=== PATIENT | male | born 1980 | race Caucasian/White ===

== ENCOUNTER 2016-12-13 14:55 | Observation (INO) | payer OTHER ==
[2016-12-13] MEDS ORDERED: NS 0.9% 1000 ML* 1,000 ML IV ONE (15:38)
[2016-12-13 16:23] LABS: Hematocrit 47 % (42-52); Hemoglobin 15.8 g/dl (14.0-18.0); Mean Corpuscular HGB Conc 34 g/dl (31-36); Mean Corpuscular Hemoglobin 30 pg (27-31); Mean Corpuscular Volume 88 fL (80-94); Mean Platelet Volume 9 um3 (7.4-10.4); Red Blood Count 5.31 10^6/ul (4.0-5.4); Red Cell Distribution Width 13 % (10.5-15); White Blood Count 11.2 10^3/ul (3.5-10.8)
[2016-12-13 16:38] LABS: ALT 15 U/L (7-52); Albumin 4.6 g/dL (3.2-5.2); Alkaline Phosphatase 72 U/L (34-104); BUN/Creatinine Ratio 14.7 (8-20); Blood Urea Nitrogen 14 mg/dL (6-24); CO2 Carbon Dioxide 27 mmol/L (22-32); Calcium 9.5 mg/dL (8.6-10.3); Chloride 104 mmol/L (101-111); EGFR Non-African American 90.2 (>60); Glucose 86 mg/dL (70-100); Sodium 136 mmol/L (133-145); Total Protein 7.6 g/dL (6.4-8.9)
[2016-12-13 16:48] LABS: TSH (Thyroid Stimulating Horm) 1.24 mcIU/mL (0.34-5.60)
[2016-12-13 17:38] LABS: Anion Gap 5 mmol/L (2-11)
[2016-12-13] MEDS ORDERED: Aspirin TAB* 325 MG PO ONE (18:30)
[2016-12-13] MEDS ORDERED: Nitroglycerin TAB 0.4 MG* 0.4 MG TAB SL ONE (18:30)
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
[2016-12-14 08:04] VITALS: BP 142/74
[2016-12-14] MEDS ORDERED: Nicotine Inhaler* 10 MG AMP INH PRN (08:24)
[2016-12-14] MEDS ORDERED: Mouth Piece, Nicotine* 1 EACH CARTRIDGE INH ONE (09:00)
[2016-12-14] MEDS ORDERED: Nicotine PATCH 14 MG/24 HR* PATCH TRANSDERM SCH (09:00)
--- NOTE | 2016-12-14 11:15 | ECHO ---
Patient: INDRA VILLARREAL [facility] Rec#: [id number] : 1980 Date: 12/14/2016 Age: 36y Height: 180.34 cm / 71.0 in Weight: 111.13 kg / 244.9 lbs Sex: M BSA: 2.3 Room#: 451 Admit Date#: 12/13/2016 Type: Inpatient Referring: Rao Presley MD Reading: Tio Rojas MD Director Web: Vida Mello RD,RDMS Transthoracic Echocardiogram Indication: Syncope BP: 128/84 HR: 60 Rhythm: NSR Findings History: GERD, smoker, congenital heart defect Technical Comments: The study quality is good. Completed 1115 Left Ventricle: The left ventricular chamber size is normal. There is no left ventricular hypertrophy. The estimated ejection fraction is 55-60%. Normal left ventricular diastolic filling is observed. Left Atrium: The left atrial chamber size is normal. Right Ventricle: The right ventricular chamber size and systolic function are within normal limits. Right Atrium: The right atrial cavity size is normal. Aortic Valve: The aortic valve is trileaflet. There is no evidence of aortic valve thickening. Systolic excursion of the aortic valve is normal. There is no evidence of aortic regurgitation. There is no evidence of aortic stenosis. Mitral Valve: The mitral valve leaflets appear normal. There is a trace of mitral regurgitation. There is no evidence of mitral stenosis. Tricuspid Valve: The tricuspid valve leaflets are normal. There is trace tricuspid regurgitation. Pulmonic Valve: There is no evidence of pulmonic valve thickening. There is a trace pulmonic regurgitation. Pericardium: There is no significant pericardial effusion. Aorta: The aortic root appears normal. There is no dilatation of the aortic arch. Pulmonary Artery: The main pulmonary artery appears normal. Venous: The inferior vena cava is dilated. There is less than 50% respiratory change in the inferior vena cava dimension. Summary: There was not any prior study for comparison. Echocardiogram is within normal limits. Conclusions The study quality is good. Completed 1115 The estimated ejection fraction is 55-60%. There is a trace of mitral regurgitation. There is trace tricuspid regurgitation. There is a trace pulmonic regurgitation. Measurements Name Value Normal Range RVIDd (AP) 2D 2.9 cm (0.9 - 2.6) RVDdMajor (2D) 3.3 cm (2.2 - 4.4) RAd ISD 4CH 4.4 cm (3.4 - 4.9) RA (A4C)W 4.4 cm (2.9 - 4.6) IVSd (2D) 1 cm (0.6 - 1) LVPWd (2D) 1 cm (0.6 - 1) LVIDd (2D) 5.5 cm (3.6 - 5.4) LVIDs (2D) 3.8 cm - LV FS (2D) 32 % (25 - 45) Aortic Annulus 2.3 cm (1.4 - 2.6) Ao root diameter (2D) 3 cm (2.1 - 3.5) Ascending Ao 2.6 cm (2.1 - 3.4) Aortic arch 2.5 cm (1.8 - 3.4) LA dimension (AP) 2D 4 cm (2.3 - 3.8) LAd ISD 4CH 4.7 cm (2.9 - 5.3) LA ISD 4CH W 4.2 cm (2.5 - 4.5) Name Value Normal Range LA ESV SP 4CH (A/L) 42.88 ml - LA ESV SP 2CH (A/L) 81.47 ml - LA ESV BP (A/L) 62.59 ml - LA ESV BP (A/L) index 27 ml/m2 - LA ESV SP 4CH (MOD) 38.65 ml - LA ESV SP 2CH (MOD) 78.27 ml - Name Value Normal Range MV E-wave Vmax 0.7 m/sec - MV deceleration time 246 msec - MV A-wave Vmax 0.5 m/sec - MV E:A ratio 1.2 ratio - LV septal e' Vmax 0.09 m/sec - LV lateral e' Vmax 0.11 m/sec - LV E:e' septal ratio 8 ratio - LV E:e' lateral ratio 6.4 ratio - Name Value Normal Range AV Vmax 1.3 m/sec - AV VTI 27.4 cm - AV peak gradient 7 mmHg - AV mean gradient 3.6 mmHg - LVOT Vmax 1.1 m/sec - LVOT VTI 23.5 cm - LVOT peak gradient 5 mmHg - LVOT mean gradient 2.6 mmHg - JULISSA Vmax 1.6 m/sec - Name Value Normal Range RAP 8 mmHg - IVC diameter 2.5 cm - Name Value Normal Range PV Vmax 0.8 m/sec - PV peak gradient 2.4 mmHg -
[2016-12-15] MEDS ORDERED: Nicotine Patch Removal NOTE FOLLOW UP SCH (06:00)
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
== END 2016-12-14 11:50 | disposition home or self-care (01) ==
LOC: ED 14:55 → MEDTELE 18:42
PROVIDERS: ADMIT Internal Medicine; ATTEND Internal Medicine
DX: R41.82 Altered mental status, unspecified (principal); R51 Headache; F17.200 Nicotine dependence, unspecified, uncomplicated; Q24.9 Congenital malformation of heart, unspecified; I34.0 Nonrheumatic mitral (valve) insufficiency; I36.1 Nonrheumatic tricuspid (valve) insufficiency; I37.1 Nonrheumatic pulmonary valve insufficiency; K21.9 Gastro-esophageal reflux disease without esophagitis; Z87.820 Personal history of traumatic brain injury
CPT/HCPCS: 36415; 80053; 83605; 84443; 84484; 85025; 93005; 93306; 99284; A9270-GY; G0378

== ENCOUNTER 2017-09-15 11:32 | Emergency (ER) | payer MEDICAID, OTHER ==
[2017-09-15] MEDS ORDERED: Ketorolac INJ* 60 MG/2 ML VIAL IM ONE (14:15)
--- NOTE | 2017-09-15 14:47 | RAD ---
Indication: Left hip pain with paresthesias. 2 views of left hip and an AP view the pelvis demonstrates no fracture. Joint spaces well-preserved. Pelvic ring is intact. IMPRESSION: No fracture of the pelvis or left hip is noted.
--- NOTE | 2017-09-15 14:52 | RAD ---
INDICATION: Left hip pain radiating into thigh, paresthesia. COMPARISON: There are no prior studies available for comparison. TECHNIQUE: AP neutral, flexion and extension lateral films of the lumbar spine were obtained. FINDINGS: The vertebra are in normal alignment. No fracture is seen. There is no evidence for instability with flexion and extension. There is mild disc space narrowing at the L2-L3, L4-L5 and L5-S1 levels. IMPRESSION: MILD DISC SPACE NARROWING AT THE L2-L3, L4-L5 AND L5-S1 LEVELS.
[2017-09-15 15:51] VITALS: BP 123/76
--- NOTE | 2017-09-15 15:51 | ED ---
Lower Extremity - HPI Summary HPI Summary: Pt here Lt hip pain x 10 months -radiates into thigh w/ bending at the hip. If he sits for too long/hip flexe, he develops paresthesia sensation into entire LE - no weakness or numbness, - History of Current Complaint Chief Complaint: EDBackInjuryPain Stated Complaint: LT LEG/FLANK PAIN Time Seen by Provider: 09/15/17 13:05 Hx Obtained From: Patient Pain Intensity: 10 - Allergies/Home Medications Allergies/Adverse Reactions: Allergies Allergy/AdvReac Type Severity Reaction Status Date / Time bee venom protein (honey bee) Allergy Anaphylatic Verified 09/15/17 11:42 Shock Tricyclic Compounds Allergy See Comment Verified 09/15/17 11:42 PMH/Surg Hx/FS Hx/Imm Hx Endocrine/Hematology History: Denies: Hx Diabetes Cardiovascular History: Reports: Hx Congenital Heart Disease - "aortic valve hole" Denies: Hx Congestive Heart Failure, Hx Hypertension, Hx Pacemaker/ICD, Other Cardiovascular Problems/Disorders Respiratory History: Reports: Hx Chronic Bronchitis - Twice Denies: Hx Asthma, Hx Chronic Obstructive Pulmonary Disease (COPD), Other Respiratory Problems/Disorders GI History: Reports: Hx Gastroesophageal Reflux Disease History: Denies: Hx Renal Disease Musculoskeletal History: Reports: Hx Back Problems - lower back pain Sensory History: Reports: Hx Contacts or Glasses - pt states he does not have current pair Denies: Hx Hearing Aid Opthamlomology History: Reports: Hx Contacts or Glasses - pt states he does not have current pair Psychiatric History: Reports: Hx Depression, Hx Bipolar Disorder, Hx Substance Abuse Denies: Hx Eating Disorder, Hx of Violent Episodes Against Others - Surgical History Surgery Procedure, Year, and Place: APPENDIX, 2009 ; RIGHT HAND REPAIR , AGE 14 ; Thumb surgery 04/24 Hx Anesthesia Reactions: No Infectious Disease History: No Infectious Disease History: Denies: Traveled Outside the [place] in Last 30 Days - Family History Known Family History: Positive: Unknown Family History: adopted. - Social History Alcohol Use: Occasionally Alcohol Amount: 2-3 PER month Hx Substance Use: No Substance Use Type: Reports: None Hx Tobacco Use: Yes Smoking Status (MU): Heavy Every Day Tobacco Smoker Type: Cigarettes Amount Used/How Often: 1/2 PACK A DAY Have You Smoked in the Last Year: Yes Physical Exam Vital Signs On Initial Exam: Initial Vitals Temp Pulse Resp BP Pulse Ox 98.4 F 74 14 128/69 98 09/15/17 11:43 09/15/17 11:43 09/15/17 11:43 09/15/17 11:43 09/15/17 11:43 Diagnostics - Vital Signs Vital Signs Temp Pulse Resp BP Pulse Ox 09/15/17 11:43 98.4 F 74 14 128/69 98 - Laboratory Lab Statement: Any lab studies that have been ordered have been reviewed, and results considered in the medical decision making process. Discharge - Discharge Plan Referrals: Stan Mancilla MD [Primary Care Provider] -
== END 2017-09-15 15:50 | disposition home or self-care (01) ==
LOC: ED 11:32
DX: R10.84 Generalized abdominal pain (principal); F17.210 Nicotine dependence, cigarettes, uncomplicated
CPT/HCPCS: 72114; 96372; 99282; J1885

== ENCOUNTER 2019-02-28 10:57 | Emergency (ER) | payer SELFPAY ==
--- NOTE | 2019-02-28 11:50 | UC ---
Dental HPI - HPI Summary HPI Summary: 38 yo male presents with tooth pain. He tells me that he knows he has several bad teeth. Since yesterday has noticed right lower tooth pain - has had several abscesses in this area. He has been taking ibuprofen for discomfort with little relief. He is eating and drinking well. Denies fever or chills - History of Current Complaint Stated Complaint: TOOTH ACHE Time Seen by Provider: 02/28/19 11:50 Hx Obtained From: Patient Severity: Moderate Pain Intensity: 5 Pain Scale Used: 0-10 Numeric - Allergies/Home Medications Allergies/Adverse Reactions: Allergies Allergy/AdvReac Type Severity Reaction Status Date / Time bee venom protein (honey bee) Allergy Anaphylatic Verified 02/28/19 11:53 Shock Tricyclic Compounds Allergy See Comment Verified 02/28/19 11:53 PMH/Surg Hx/FS Hx/Imm Hx - Additional Past Medical History Additional PMH: None Other History Of: Negative For: Anticoagulant Therapy - Surgical History Surgical History: Yes Surgery Procedure, Year, and Place: APPENDIX, 2009 ; RIGHT HAND REPAIR , AGE 14 ; Thumb surgery 04/24 - Family History Known Family History: Positive: Unknown Family History: adopted. - Social History Occupation: Employed Full-time Lives: With Family Alcohol Use: Occasionally Alcohol Amount: 2-3 PER month Substance Use Type: None Smoking Status (MU): Current Every Day Smoker Type: Cigarettes Amount Used/How Often: 1/2 PACK A DAY Have You Smoked in the Last Year: Yes Household Exposure Type: Cigarettes - Immunization History Most Recent Influenza Vaccination: "never" Most Recent Tetanus Shot: current Most Recent Pneumonia Vaccination: never Review of Systems All Other Systems Reviewed And Are Negative: No Constitutional: Positive: Negative Skin: Positive: Negative ENT: Positive: Dental Pain Respiratory: Positive: Negative Cardiovascular: Positive: Negative Neurological: Positive: Negative Psychological: Positive: Negative Physical Exam - Summary Physical Exam Summary: GENERAL: NAD. WDWN. No pain distress. SKIN: No rashes, sores, lesions, or open wounds. HEENT: Head: AT/NC Nose: Nasal mucosa pink and moist. NTTP maxillary and frontal sinus. Throat: Posterior oropharynx without exudates, erythema, or tonsillar enlargement. Uvula midline. NECK: Supple. Nontender. No lymphadenopathy. CHEST: No accessory muscle use. Breathing comfortably and in no distress. CV: Pulses intact. Cap refill <2seconds NEURO: Alert. PSYCH: Age appropriate behavior. Triage Information Reviewed: Yes Vital Signs: Vital Signs: Temp Pulse Resp BP Pulse Ox 98.9 F 64 15 122/78 98 02/28/19 11:50 02/28/19 11:50 02/28/19 11:50 02/28/19 11:50 02/28/19 11:50 Vital Signs Reviewed: Yes Dental: Positive: Percussion Tenderness @ - Tooth #30, Gross Decay/Caries @ - throughout, Dental Fracture @ - Tooth #30, Abscess @ - Tooth #30. Negative: Cellulitis @, Cervical Lymphadenopathy, Bleeding Dental Complaint Course/Dx - Course Course Of Treatment: Tooth #30 abscess - Differential Dx/Diagnosis Provider Diagnosis: Dental abscess Discharge ED - Sign-Out/Discharge Documenting (check all that apply): Patient Departure All imaging exams completed and their final reports reviewed: No Studies - Discharge Plan Condition: Stable Disposition: HOME Prescriptions: Amoxicillin PO (*) [Amoxicillin 500 MG CAP*] 500 mg PO Q12H #14 cap Lidocaine 2% VISCOUS* [Xylocaine 2% Viscous*] 15 ml SWISH SPIT Q4H PRN #250 ml PRN Reason: Pain - Mild Patient Education Materials: Dental Abscess (ED) Referrals: Stan Mancilla MD [Primary Care Provider] - Additional Instructions: If you develop a fever, shortness of breath, chest pain, new or worsening symptoms - please call your PCP or go to the ED immediately. - Billing Disposition and Condition Condition: STABLE Disposition: Home
[2019-02-28 11:53] VITALS: BP 122/78
== END 2019-02-28 12:14 | disposition home or self-care (01) ==
LOC: UCEAST 10:57
DX: K04.7 Periapical abscess without sinus (principal); F17.210 Nicotine dependence, cigarettes, uncomplicated; Z91.030 Bee allergy status; Z91.09 Other allergy status, other than to drugs and biological substances
CPT/HCPCS: 99212; G0463

== ENCOUNTER 2019-03-13 07:08 | Emergency (ER) | payer SELFPAY ==
[2019-03-13 07:18] VITALS: BP 127/63
--- NOTE | 2019-03-13 07:23 | UC ---
[facility] Dental HPI - HPI Summary HPI Summary: 38 yo male iwth dental pain/swelling x weeks currently on Amox x one week not improved unable to sleep last pm no f/c no n/v/d - History of Current Complaint Chief Complaint: UCDentalProblem Stated Complaint: DENTAL PAIN Time Seen by Provider: 03/13/19 07:22 Hx Obtained From: Patient Onset/Duration: Gradual Onset, Lasting Weeks Severity: Severe Pain Intensity: 7 Pain Scale Used: 0-10 Numeric Aggravating Factor(s): Chewing Alleviating Factor(s): Nothing - Allergies/Home Medications Allergies/Adverse Reactions: Allergies Allergy/AdvReac Type Severity Reaction Status Date / Time bee venom protein (honey bee) Allergy Anaphylatic Verified 03/13/19 07:18 Shock Tricyclic Compounds Allergy See Comment Verified 03/13/19 07:18 PMH/Surg Hx/FS Hx/Imm Hx Previously Healthy: Yes Other History Of: Negative For: Anticoagulant Therapy - Surgical History Surgical History: Yes Surgery Procedure, Year, and Place: APPENDIX, 2009 ; RIGHT HAND REPAIR , AGE 14 ; Thumb surgery 04/24 - Family History Known Family History: Positive: Hypertension, Non-Contributory Family History: adopted. - Social History Alcohol Use: Occasionally Alcohol Amount: 2-3 PER month Substance Use Type: None Smoking Status (MU): Heavy Every Day Tobacco Smoker Type: Cigarettes Amount Used/How Often: 1/2 PACK A DAY Have You Smoked in the Last Year: Yes Household Exposure Type: Cigarettes - Immunization History Most Recent Influenza Vaccination: "never" Most Recent Tetanus Shot: current Most Recent Pneumonia Vaccination: never Review of Systems All Other Systems Reviewed And Are Negative: Yes Constitutional: Positive: Negative Skin: Positive: Negative Eyes: Positive: Negative ENT: Positive: Dental Pain Respiratory: Positive: Negative Cardiovascular: Positive: Negative Gastrointestinal: Positive: Negative Genitourinary: Positive: Negative Motor: Positive: Negative Neurovascular: Positive: Negative Musculoskeletal: Positive: Negative Neurological: Positive: Negative Psychological: Positive: Negative Physical Exam Triage Information Reviewed: Yes Appearance: Well-Appearing, No Pain Distress, Well-Nourished Vital Signs: Initial Vital Signs Temp 99.2 F 03/13/19 07:13 Pulse 58 03/13/19 07:13 Resp 18 03/13/19 07:13 BP 127/63 03/13/19 07:13 Pulse Ox 99 11/03/19 07:13 Vital Signs Reviewed: Yes Eyes: Positive: Conjunctiva Clear ENT: Positive: Hearing grossly normal. Negative: Nasal congestion, Nasal drainage, Trismus, Hoarse voice Dental: Positive: Other: - abysmal dentition Neck: Positive: Supple, Nontender, No Lymphadenopathy Respiratory: Positive: Lungs clear, Normal breath sounds, No respiratory distress Cardiovascular: Positive: RRR, No Murmur Musculoskeletal: Positive: ROM Intact, No Edema Neurological: Positive: Alert Skin Exam: Normal Images Dental: 1 - rotted teeth/swoolen gums Dental Complaint Course/Dx - Differential Dx/Diagnosis Provider Diagnosis: Dental abscess Discharge ED - Sign-Out/Discharge Documenting (check all that apply): Patient Departure All imaging exams completed and their final reports reviewed: No Studies - Discharge Plan Condition: Stable Disposition: HOME Prescriptions: Clindamycin Cap(NF) [Clindamycin Cap 300 mg Cap(NF)] 300 mg PO QID #28 cap Naproxen [Naproxen 500 mg tab] 500 mg PO BID PRN #20 tablet PRN Reason: Pain Patient Education Materials: Dental Abscess (ED) Referrals: Stan Mancilla MD [Primary Care Provider] - If Needed Additional Instructions: see dentist first available appt to ER if not improved in 2-3 days - Billing Disposition and Condition Condition: STABLE Disposition: Home
[2019-03-13] MEDS ORDERED: Clindamycin CAP* 150 MG PO ONE (07:27)
== END 2019-03-13 07:40 | disposition home or self-care (01) ==
LOC: UCEAST 07:08
DX: K04.7 Periapical abscess without sinus (principal); F17.210 Nicotine dependence, cigarettes, uncomplicated; Z91.030 Bee allergy status; Z88.8 Allergy status to other drugs, medicaments and biological substances
CPT/HCPCS: 99212; A9270-GY; G0463

== ENCOUNTER 2019-05-09 11:22 | Emergency (ER) | payer OTHER ==
[2019-05-09 12:05] VITALS: BP 120/70
--- NOTE | 2019-05-09 12:09 | UC ---
Throat Pain/Nasal Vincent HPI - HPI Summary HPI Summary: 38 yo male presents with FB sensation in his throat. He tells me that 3 days ago he was eating taco billings (chicken tacos) and later that night noticed some discomfort around his "benjamin's apple" when he swallowed. Feels like there is something stuck here. No difficulty eating, drinking, or swallowing or breathing. No fevers. - History of Current Complaint Chief Complaint: UCGeneralIllness Stated Complaint: SORE TTHROAT Time Seen by Provider: 05/09/19 12:09 Hx Obtained From: Patient Onset/Duration: Sudden Onset Severity: Mild Pain Intensity: 2 Pain Scale Used: 0-10 Numeric - Allergies/Home Medications Allergies/Adverse Reactions: Allergies Allergy/AdvReac Type Severity Reaction Status Date / Time bee venom protein (honey bee) Allergy Anaphylatic Verified 05/09/19 11:29 Shock Tricyclic Compounds Allergy See Comment Verified 05/09/19 11:29 Home Medications: Home Medications NK [No Home Medications Reported] 05/09/19 [History Confirmed 05/09/19] PMH/Surg Hx/FS Hx/Imm Hx Psychological History: Anxiety Other History Of: Negative For: Anticoagulant Therapy - Surgical History Surgical History: Yes Surgery Procedure, Year, and Place: APPENDIX, 2009 ; RIGHT HAND REPAIR , AGE 14 ; Thumb surgery 04/24 - Family History Known Family History: Positive: Hypertension, Non-Contributory Family History: adopted. - Social History Lives: With Family Alcohol Use: Rare Alcohol Amount: 2-3 PER month Substance Use Type: None Smoking Status (MU): Heavy Every Day Tobacco Smoker Type: Cigarettes Amount Used/How Often: 1/2 PACK A DAY Have You Smoked in the Last Year: Yes Household Exposure Type: Cigarettes - Immunization History Most Recent Influenza Vaccination: "never" Most Recent Tetanus Shot: current Most Recent Pneumonia Vaccination: never Review of Systems All Other Systems Reviewed And Are Negative: No Constitutional: Positive: Negative Skin: Positive: Negative Eyes: Positive: Negative ENT: Positive: Other - FB sensation throat Respiratory: Positive: Negative Cardiovascular: Positive: Negative Gastrointestinal: Positive: Negative Neurological: Positive: Negative Psychological: Positive: Negative Physical Exam - Summary Physical Exam Summary: GENERAL: NAD. WDWN. No pain distress. SKIN: No rashes, sores, lesions, or open wounds. HEENT: Head: AT/NC Throat: Posterior oropharynx without exudates, erythema, or tonsillar enlargement. Uvula midline. NECK: Supple. Nontender. No lymphadenopathy. CHEST: CTAB. No accessory muscle use. Breathing comfortably and in no distress. CV: RRR. Pulses intact. Cap refill <2seconds NEURO: Alert. PSYCH: Age appropriate behavior. Triage Information Reviewed: Yes Vital Signs: Initial Vital Signs Temp 99.1 F 05/09/19 11:32 Pulse 60 05/09/19 11:32 Resp 18 05/09/19 11:32 BP 120/70 05/09/19 11:32 Pulse Ox 100 05/09/19 11:32 Vital Signs Reviewed: Yes Diagnostics - Radiology Soft tissue neck Radiology Interpretation Completed By: Radiologist Summary of Radiographic Findings: IMPRESSION: NO RADIOPAQUE FOREIGN BODY Throat Pain/Nasal Course/Dx - Course Course Of Treatment: XR as above. In the clinic pt was given viscous lidocaine for his FB sensation and had mild improvement of his throat discomfort. States that his discomfort has been improving daily, but he thought it would be gone by now. Advised to continue monitoring and trying a softer food diet. Will refer to GI and have him try an OTC pepcid. Go to the ED if symptoms worsen or change - Differential Dx/Diagnosis Provider Diagnosis: Foreign body sensation in throat Discharge ED - Sign-Out/Discharge Documenting (check all that apply): Patient Departure All imaging exams completed and their final reports reviewed: Yes - Discharge Plan Condition: Stable Disposition: HOME Patient Education Materials: Esophagitis (ED), Foreign Body Ingestion (ED) Referrals: Stan Mancilla MD [Primary Care Provider] - Kamila Mayorga MD [Medical Doctor] - As Soon As Possible Additional Instructions: I am unsure the cause of your throat sensation today. Please try an [id number] pepcid to see if this helps. Please call the GI doctor at the number below to schedule an appointment to have in case this does not improve with time If your symptoms worsen or change - please go to the ER for further evaluation. - Billing Disposition and Condition Condition: STABLE Disposition: Home
[2019-05-09] MEDS ORDERED: Lidocaine 2% VISCOUS* 15 ML UDC PO ONE (12:13)
== END 2019-05-09 13:01 | disposition home or self-care (01) ==
LOC: UCEAST 11:22
DX: R09.89 Other specified symptoms and signs involving the circulatory and respiratory systems (principal); F17.210 Nicotine dependence, cigarettes, uncomplicated; Z91.030 Bee allergy status; Z88.8 Allergy status to other drugs, medicaments and biological substances
CPT/HCPCS: 70360; 87651; 99212; G0463